=== PATIENT | female | born 1995 | race Caucasian/White ===

== ENCOUNTER 2017-12-01 09:14 | Observation (INO) | payer MEDICAID ==
[~2017-12-01] VITALS: Ht 172.7 cm; Wt 117.4 kg
--- NOTE | ~2017-12-01 | OP ---
[address] [address] OPERATIVE REPORT Name: ELGIN CAPPS Room: [address] Altagracia Mendes#: [id number] Admission: 12/01/17 Attend Phys: Nav Olivier MD Discharge: 12/02/17 Date of : 89 Report #: [id number] THIS REPORT FOR: //name// For details of the operative report, please see the post operative note. By: [address] [place] [address] Records Staff [facility] /[facility]
[~2017-12-01 09:14] MED LIST: DARVOCET-N 1001 EACH PO; FLEXERIL PO; NOHOMEMEDICATIONS; NORCO 5-325 TA1 EACH PO; TRINATE PO
[2017-12-01 09:23] VITALS: BP 118/82
[2017-12-01 09:43] LABS: URINE BILIRUBIN NEGATIVE (Negative); URINE BLOOD 1+ (Negative); URINE CLARITY CLEAR; URINE COLOR YELLOW; URINE GLUCOSE-RANDOM NEGATIVE (Negative); URINE KETONES 1+ (Negative); URINE LEUKOCYTES-REFLEX NEGATIVE (Negative); URINE NITRITE-REFLEX NEGATIVE (Negative); URINE PROTEIN NEGATIVE (Negative); URINE SPECIFIC GRAVITY >= 1.030 (1.005-1.030); URINE UROBILINOGEN 0.2 E.U./dl (0.2-1.0)
[2017-12-01 09:51] LABS: ABSOLUTE EOSINOPHILS 0.3 thou/uL (0.0-0.7); ABSOLUTE LYMPHOCYTES 2.6 thou/uL (0.8-5.3); ABSOLUTE MONOCYTES 0.5 thou/uL (0.0-1.2); ABSOLUTE NEUTROPHILS 6.2 thou/uL (1.6-8.1); BASOPHILS 0.4 %; HEMATOCRIT 38.8 % (37.0-47.0); HEMOGLOBIN 12.9 gm/dL (12.0-15.0); LYMPHOCYTES 27.2 %; MCH 28.5 pg (26.0-34.0); MCHC 33.3 g/dL (28.0-37.0); MCV 85.4 fL (80.0-100.0); MONOCYTES 5.6 %; MPV 9.6 fl. (7.2-11.1); NUCLEATED RBCS 0 /100WBC; PLATELET COUNT* 277 thou/uL (150-400); POLYS 63.8 %; RBC 4.54 mil/uL (4.20-5.00); RDW-CV 13.4 % (10.5-14.5); WBC 9.7 thou/uL (4.0-11.0)
[2017-12-01 09:52] LABS: BACTERIA-REFLEX None Seen /HPF (None Seen); CASTS None Seen /LPF (None Seen); MUCUS 4-6 Moderate strn/LPF (None Seen); SQUAMOUS 4-10 Moderate /LPF (0-3); URINE RBC 3-10 Few /HPF (0-2); URINE WBC-REFLEX None Seen /HPF (0-5)
[2017-12-01 09:53] LABS: CRYSTALS None Seen /LPF (None Seen)
[2017-12-01 09:56] LABS: CALCIUM 8.6 mg/dL (8.5-10.1); CREATININE 0.7 mg/dL (0.6-1.3); POTASSIUM 3.6 mmol/L (3.5-5.1)
--- NOTE | 2017-12-01 10:45 | NUR ---
PT UP TO BR WITH STEADY GAIT. PT REQUESTING PAIN AND NAUSEA MEDS. DR JUAREZ NOTIFIED
--- NOTE | 2017-12-01 11:31 | NUR ---
PT BECAME DIAPHORETIC WITH BLOOD PRESSURE DROPPING WHILE IN RM 5. MOVED PT TO ROOM 1. PELVIC EXAM DONE WITH RN IN ROOM, SAMPLES SENT.
--- NOTE | 2017-12-01 13:13 | NUR ---
PT JEWELRY GIVEN TO MOTHER
[2017-12-01 13:30] VITALS: BP 69/30
[2017-12-01 13:45] LABS: HEMATOCRIT 26.6 % (37.0-47.0); HEMOGLOBIN 8.6 gm/dL (12.0-15.0)
[2017-12-01 16:54] VITALS: BP 98/60
--- NOTE | 2017-12-01 18:04 | NUR ---
PT ADMITTED TO UNIT AROUND 1600 PT IS ALERT AND ORIENTED X 4 PT DENIES PAIN AND SOA ON RA PT HAD PAIN MEDS BEFORE COMING TO UNIT, PT IS ON BEDREST ORDER TO DANGLE PM IS PLACED. PT IS MEDICAL SURGICAL STATUS, PT ABLE TO HAVE DIET, STARTED FLUIDS, PT HAS NAVA THAT IS ORDERED TO DISCONTINUE TOMORROW 12/02/17 GOOD URINE OUTPUT, PT IS RESTING FROM PROCEDURE AND MEDS, PT FAMILY IN ROOM, PT GIVEN PROMETHAZINE BEFORE COMING TO UNIT, LAB CALLED ORDER FOR RHOGAM NEEDS TO BE ENTERED CORRECTLY THIS NURSE REENTERED ORDER RHOGAM NEEDS TO BE GIVEN BEFORE DISCHARGE, WILL CONTINUE TO MONITOR
[2017-12-01 19:08] LABS: HEMATOCRIT 30.9 % (37.0-47.0); HEMOGLOBIN 10.5 gm/dL (12.0-15.0)
[2017-12-01 20:00] VITALS: BP 113/65
[2017-12-02 04:00] VITALS: BP 96/55
[2017-12-02 04:37] LABS: HEMATOCRIT 24.7 % (37.0-47.0); HEMOGLOBIN 8.6 gm/dL (12.0-15.0)
--- NOTE | 2017-12-02 05:04 | NUR ---
PT ALERT ORIENTED. AND BABY SPENT THE NIGHT WITH PT. HYDROCODONE GIVEN FOR PAIN. ONE ATTEMPT TO DANGLE BUT PT STATED I CAN'T SOON SHE GOT INTO THE SITTING POSITION. SO SHE LAYED DOWN. PT MED SURG. NOT MONITORED ON TELEMETR. ON RA. WILL CONTINUE TO MONITOR.
--- NOTE | 2017-12-02 06:46 | NUR ---
PT WAS ABLE TO DANGLE ON SIDE OF BED AT 0500.
[2017-12-02 08:00] VITALS: BP 117/68
[2017-12-02] MEDS ORDERED: HYDROCODON-ACE1 EAC7 PO (08:09)
--- NOTE | 2017-12-02 09:16 | NUR ---
RECEIVED REPORT FROM JOSELYN MELENDEZ. ASSUMED CARE OF PT AROUND 729. PT A&O X4. VSS. O2 SAT 98% ON RA. PT M/S STATUS. AM ASSESSMENT AND VITALS COMPLETED CHARTED. IV TO RIGHT AC PARTIALLY OUT OF PT - REMOVED BY THIS RN. IV TO LEFT WRIST INTACT WITH FLUIDS INFUSING. PT REPORTS ABDOMINAL PAIN 01/16. NEXT PAIN MEDICATION DUE AT 10AM. WILL ADMINISTER. PT INFORMED OF PLAN OF CARE. PT COMMUNCIATES UNDERSTANDING. PT TO DC THIS AFTERNOON ONCE ABLE TO VOID POST NAVA REMOVAL, IS ABLE TO EAT, AND IS ABLE TO WALK. PT CURRENTLY EATING BREAKFAST IN BED. CALL LIGHT IS WTIHIN REACH. LOW FALL RISK PRECAUTIONS IN PLACE. MAGDALENA ROUNDING PERFORMED. WILLIAM.
[2017-12-02 11:59] VITALS: BP 117/68
--- NOTE | 2017-12-02 12:38 | NUR ---
DISCHARGE ORDERS RECEIVED. DISCHARGE COMPLETED DOCUMENTED. DISCHARGE SUMMARY AND CARE NOTES GONE OVER WITH THE PT. SCRIPT GIVEN. INFORMATION GIVEN ON ECTOPIC AND FALLOPIAN TUBE REMOVAL, DISCHARGE CARE. PT COMMUNICATES UNDERSTANDING. NAVA CATHETER WAS REMOVED, PT ABLE TO VOID - 350 OUT. PT ABLE TO AMBULATE IN HALLWAY WITH NURSE. PT ABLE TO EAT WITHOUT ISSUE AND IS TOLERATING THIN LIQUIDS. PT STATES SHE HAS BEEN BELCHING. LAP SITES LOOK GOOD - NO S&S OF INFECTION. ALL BELONGINGS GATHERED AND SENT WITH THE PT. IV REMOVED. PT LEFT UNIT IN WC WITH NURSING STAFF. PT LEFT HOSPITAL IN CAR WITH SPOUSE.
--- NOTE | 2017-12-07 13:09 | PATH ---
[address] [address] PATHOLOGY RPT PROCEDURE Name: LISA CAPPS Room: [address] Altagracia Mendes#: [id number] Admission: 12/01/17 Date of : 89 Discharge: 12/02/17 Report #: [id number] Path Case #: [id number] [facility] Accession Number: [id number] . 01 Material submitted: . LEFT FALLOPIAN TUBE . 01 Clinical history: . Ectopic . Partial salpingectomy. Peritoneal hematoma. . 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 (ALEXYS:db; 12/05/2017) LBQ/12/05/2017 . 02 Electronically signed: . Ashwin Gandhi MD, Pathologist NPI- [id number] . 01 Gross description: . Received in formalin labeled "Lisa Capps, left fallopian tube" is a pink-lomeli segment of fallopian tube without visible fimbria, which measures 3.0 cm in length and ranges from 0.6-1.2 cm in diameter. At the distal aspect of the fallopian tube is an area of olmeli-white possible product of conception which measures 1.8 x 1.7 x 0.6 cm. The fallopian tube is fragmented and ruptured in this area. The specimen is serially sectioned and submitted entirely and sequentially from proximal to distal in cassettes A1-A3. ([facility]; 12/03/2017) SY/SYC . 02 Pathologist provided ICD-10: O00.90 . 02 CPT . 137738 Performed at: [address], [place] [id number] MD Sergio Jones MD Phone: [phone] Performed at: [address] [address] [place] [id number] MD Ashwin Gandhi MD Phone: [phone]
== END 2017-12-02 12:46 | disposition home or self-care (01) ==
LOC: M.ERS 09:14 → M.SUR 09:14 → M.2W 15:59 → M.TBA 15:59 → M.2W 16:52
PROVIDERS: Personal Emergency Response Attendant; ADMIT Specialist
DX: O00.90 Unspecified ectopic pregnancy without intrauterine pregnancy (principal); O00.102 Left tubal pregnancy without intrauterine pregnancy; K66.1 Hemoperitoneum; R10.30 Lower abdominal pain, unspecified; R10.2 Pelvic and perineal pain; R55 Syncope and collapse